=== PATIENT | male | born 1930 | race Caucasian/White ===

== ENCOUNTER 2016-08-31 14:38 | Emergency (ER) | payer MEDICARE, OTHER ==
[~2016-08-31 14:38] MED LIST: ASCO500T2 PO; BUME2TAB PO; CLOB15CR2 TP; CYAN500T17 PO; HYDR-2868 PO; HYDR100T24 PO; Hydrocodone Bit/Acetaminophen PO; INSU100I13 SQ; LOSA100T6 PO; MELA1TAB13 PO; MULT-18 PO; PANT40TA5 PO; POTA20TA12 PO; PRED20TA PO; PRIM50TA PO; PRIM50TA24 PO; PROP60TA PO; PYRI100T PO; SITA25TA PO; TRAZ50TA15 PO; VANC1VIA3 MC; VITA400C11 PO; WARF1TAB7 PO; WARF4TAB7 PO; WARF5TAB7 PO; WARF6TAB7 PO
[2016-08-31 15:25] LABS: BASO % 0 % (0-3); EOS # 0.6 x10^3/uL (0.0-0.7); EOS % 6 % (0-3); HEMATOCRIT 34.3 % (39.0-53.0); HEMOGLOBIN 11.7 g/dL (13.0-17.5); LYMPH # 1.3 x10^3/uL (1.0-4.8); LYMPH % 12 % (24-48); MEAN CORPUSCULAR HEMOGLOBIN 35 pg (25-35); MEAN CORPUSCULAR HGB CONC 34 g/dL (31-37); MEAN CORPUSCULAR VOLUME 101 fL (79-100); MONO # 0.9 x10^3/uL (0.0-1.1); MONO % 9 % (0-9); NEUT # 7.9 x10^3uL (1.8-7.7); NEUT % 73 % (31-73); PLATELET COUNT 186 x10^3/uL (140-400); RED BLOOD COUNT 3.38 x10^6/uL (4.30-5.70); RED CELL DISTRIBUTION WIDTH 13.7 % (11.5-14.5); WHITE BLOOD COUNT 10.8 x10^3/uL (4.0-11.0)
[2016-08-31 15:37] LABS: ALBUMIN 3.2 g/dL (3.4-5.0); ALBUMIN/GLOBULIN RATIO 0.8 (1.0-1.7); CALCIUM 8.9 mg/dL (8.5-10.1); CREATININE 3.2 mg/dL (0.7-1.3); GFR 18.5; TOTAL BILIRUBIN 0.6 mg/dL (0.2-1.0)
--- NOTE | 2016-08-31 16:05 | RAD ---
Examination: Ultrasound right lower extremity venous duplex History: History of right groin pain Comparison: None available Technique: Grayscale, color laboratory, spectral waveforms of the right lower extremity venous system were performed Findings: The visualized common femoral vein, superficial femoral vein, popliteal vein demonstrate normal compression augmentation of flow. The visualized calf veins are patent. Impression No evidence of deep venous thrombosis identified in the right lower extremity venous system.
--- NOTE | 2016-08-31 16:20 | ED.ADGEN ---
Past History Past Medical History: Cancer, CHF, COPD, Diverticulitis, Diabetes, DVT, GERD, Hypertension, MRSA, Pneumonia, Renal Disease, Renal Failure, UTI, Other Past Surgical History: Other Smoking: Non-smoker Alcohol Use: None Drug Use: None Adult General Chief Complaint Chief Complaint Right groin pain [facility] HPI Patient is a 86-year-old male who presents with right groin pain 2-3 weeks. Patient was seen at dialysis daily and referred to the ER for additional evaluation. Previously, the patient has had pelvic x-ray per patient report that facility by his PCP. The results of this x-ray study are unknown. Patient points to right medial groin pain which is worse with palpation. There is no palpable hernias, bruising or swelling. 2+ femoral pulses present. No other acute symptoms or complaints. Review of Systems Review of Systems ROS as per HPI. Allergies Allergies Allergies Coded Allergies Type Severity Reaction Last Updated Verified furosemide Allergy Severe bullous pemphigus 07/05/13 Yes I S O L A T I O N *CONTACT* Allergy Unknown 10/08/13 No Physical Exam Physical Exam Constitutional: Well developed, well nourished, no acute distress, non-toxic appearance. HENT: Normocephalic, atraumatic, bilateral external ears normal, oropharynx moist, no oral exudates, nose normal. Eyes: PERRL, EOMI. Neck: Normal range of motion. Cardiovascular:Heart rate regular rhythm, no murmur. Lungs & Thorax: Bilateral breath sounds clear to auscultation Abdomen: Bowel sounds normal, soft, medial right groin pain/tenderness, no palpable hernias. No bruising swelling, redness or palpable lymphadenopathy. Femoral pulses 2+ and symmetric. Skin: Warm, dry, no erythema, no rash. Back: No tenderness. Neurologic: Alert and oriented, normal motor function, normal sensory function, no focal deficits noted. Psychologic: Affect normal, judgement normal, mood normal. [] Current Patient Data Vital Signs Vital Signs Date Time Temp Pulse Resp B/P (MAP) Pulse Ox O2 Delivery O2 Flow Rate FiO2 08/31/16 14:38 98.1 73 18 95 Room Air Lab Results Laboratory Tests Test 08/31/16 15:09 White Blood Count 10.8 x10^3/uL (4.0-11.0) Red Blood Count 3.38 x10^6/uL (4.30-5.70) L Hemoglobin 11.7 g/dL (13.0-17.5) L Hematocrit 34.3 % (39.0-53.0) L Mean Corpuscular Volume 101 fL (79-100) H Mean Corpuscular Hemoglobin 35 pg (25-35) Mean Corpuscular Hemoglobin Concent 34 g/dL (31-37) Red Cell Distribution Width 13.7 % (11.5-14.5) Platelet Count 186 x10^3/uL (140-400) Neutrophils (%) (Auto) 73 % (31-73) Lymphocytes (%) (Auto) 12 % (24-48) L Monocytes (%) (Auto) 9 % (0-9) Eosinophils (%) (Auto) 6 % (0-3) H Basophils (%) (Auto) 0 % (0-3) Neutrophils # (Auto) 7.9 x10^3uL (1.8-7.7) H Lymphocytes # (Auto) 1.3 x10^3/uL (1.0-4.8) Monocytes # (Auto) 0.9 x10^3/uL (0.0-1.1) Eosinophils # (Auto) 0.6 x10^3/uL (0.0-0.7) Basophils # (Auto) 0.0 x10^3/uL (0.0-0.2) Sodium Level 141 mmol/L (136-145) Potassium Level 4.0 mmol/L (3.5-5.1) Chloride Level 100 mmol/L (98-107) Carbon Dioxide Level 38 mmol/L (21-32) H Anion Gap 3 (6-14) L Blood Urea Nitrogen 15 mg/dL (8-26) Creatinine 3.2 mg/dL (0.7-1.3) H Estimated GFR (Cockcroft-Gault) 18.5 BUN/Creatinine Ratio 5 (6-20) L Glucose Level 172 mg/dL (70-99) H Calcium Level 8.9 mg/dL (8.5-10.1) Total Bilirubin 0.6 mg/dL (0.2-1.0) Aspartate Amino Transferase (AST) 15 U/L (15-37) Alanine Aminotransferase (ALT) 16 U/L (16-63) Alkaline Phosphatase 92 U/L (46-116) Total Protein 7.0 g/dL (6.4-8.2) Albumin 3.2 g/dL (3.4-5.0) L Albumin/Globulin Ratio 0.8 (1.0-1.7) L EKG EKG [] Radiology/Procedures Radiology/Procedures [Venous Doppler ultrasound right lower extremity: No evidence of DVT per radiology report] Impressions: t Course & Med Decision Making Course & Med Decision Making Pertinent Labs and Imaging studies reviewed. (See chart for details) [R groin pain without evidence of infection or DVT. Patient previously evaluated by his PCP with x-ray 1 week in follow-up. The results are unknown. Patient is resting comfortably while in the emergency department. Will discharge to the correction with ED medical records and instructions to follow -up with PCP for further management Final Impression Final Impression [1. Right groin pain] Problems: Dragon Disclaimer Dragon Disclaimer This electronic medical record was generated, in whole or in part, using a voice recognition dictation system. MARY FU DO August 31, 2016 16:20
[2016-08-31 16:50] VITALS: BP 109/57
== END 2016-08-31 16:58 | disposition home or self-care (01) ==
LOC: ER 14:38
DX: R10.31 Right lower quadrant pain (principal); J44.9 Chronic obstructive pulmonary disease, unspecified; E11.9 Type 2 diabetes mellitus without complications; I13.0 Hypertensive heart and chronic kidney disease with heart failure and stage 1 through stage 4 chronic kidney disease, or unspecified chronic kidney disease; N18.9 Chronic kidney disease, unspecified; I50.9 Heart failure, unspecified; K21.9 Gastro-esophageal reflux disease without esophagitis; E11.22 Type 2 diabetes mellitus with diabetic chronic kidney disease; Z86.14 Personal history of Methicillin resistant Staphylococcus aureus infection; Z86.718 Personal history of other venous thrombosis and embolism; Z87.440 Personal history of urinary (tract) infections; Z99.2 Dependence on renal dialysis; Z88.8 Allergy status to other drugs, medicaments and biological substances; Z91.041 Radiographic dye allergy status
CPT/HCPCS: 36415; 80053; 85027; 93971; 99285-25